=== PATIENT | male | born 1955 | race Caucasian/White ===

== ENCOUNTER 2023-05-03 21:59 | Inpatient (IN) | payer OTHER ==
[~2023-05-03] VITALS: Ht 170.2 cm; Wt 98.4 kg
[2023-05-03 22:00] VITALS: BP 118/68; PULSE 80; RESP 18; TEMP 97.6; O2SAT 97
[2023-05-03 22:31] LABS: BASOPHILS % (AUTO) 0.2 % (0.0-2.0); LYMPHOCYTES # (AUTO) 0.4 K/uL (2.0-11.5); LYMPHOCYTES % (AUTO) 10.9 % (20.5-51.1); MEAN CORPUSCULAR HEMOGLOBIN 31 pg (27-31); MEAN CORPUSCULAR HGB CONC 34 g/dL (33-37); MEAN CORPUSCULAR VOLUME 89.1 fL (80-94); MONOCYTES # (AUTO) 0.2 K/uL (0.8-1.0); MONOCYTES % (AUTO) 5.4 % (1.7-9.3); NEUTROPHILS # (AUTO) 3.1 K/uL (1.8-7.7); NEUTROPHILS % (AUTO) 82.5 % (42.2-75.2); PLATELET COUNT (AUTO) 27 K/uL (140-450); RED BLOOD CELL COUNT(AUTO) 2.27 MIL/uL (4.20-6.10); RED CELL DISTRIBUTION WIDTH 21.2 % (11.6-13.7); WHITE BLOOD COUNT (AUTO) 3.7 K/uL (4.8-10.8)
[2023-05-03 22:34] LABS: HEMATOCRIT 20.2 % (36-52); HEMOGLOBIN 6.9 g/dL (12.0-18.0)
[2023-05-03 22:47] LABS: ANION GAP 13.6 (8-16); CALCIUM 8.2 mg/dL (8.5-10.1); CARBON DIOXIDE 24.5 mmol/L (21-32)
[2023-05-03 22:59] LABS: POTASSIUM 6.1 mmol/L (3.5-5.1)
[2023-05-03 23:01] LABS: CREATININE 6.7 mg/dL (0.6-1.3)
[2023-05-03] MEDS: NACL 0.9% 1,000 ML IV ONE (23:56)
[2023-05-04] MEDS: SODIUM ZIRCONIUM CYCLOSILICATE 10 GM POWD.PACK PO ONE (00:18)
[2023-05-04] MEDS: DEXTROSE 50% 50 ML SYR IVP ONE (00:21)
[2023-05-04] MEDS ORDERED: cefTRIAXone 1,000 MG VIAL ONE (00:48)
[2023-05-04] MEDS ORDERED: TRI48 PO (00:50)
[2023-05-04] MEDS ORDERED: VALP-22 PO (00:50)
[2023-05-04] MEDS ORDERED: NAPR1TAB25 PO (00:50)
[2023-05-04] MEDS ORDERED: BENZ-315 PO (00:50)
[2023-05-04] MEDS ORDERED: SYN.05 PO (00:50)
[2023-05-04] MEDS ORDERED: RISP0.5T3 SL (00:50)
[2023-05-04] MEDS ORDERED: HYDR-5080 PO (00:50)
[2023-05-04] MEDS ORDERED: HYDR25TA32 PO (00:50)
[2023-05-04] MEDS ORDERED: METF-346 PO (00:50)
[2023-05-04] MEDS ORDERED: ZOLP5TAB1 PO (00:50)
[2023-05-04] MEDS: cefTRIAXone 1,000 MG in DEXT 5% MINI-BAG PLUS 50 ML IV ONE (00:59)
[2023-05-04] MEDS: NACL 0.9% 1,000 ML IV SCH ×3 (01:05→16:25)
[2023-05-04 01:19] LABS: LACTIC ACID 1.6 mmol/L (0.4-2.0)
[2023-05-04 05:10] LABS: APPEARANCE,URINE CLEAR (CLEAR); BILIRUBIN,URINE 2+ (NEGATIVE); BLOOD, URINE 3+ (NEGATIVE); COLOR,URINE YELLOW (YELLOW); LEUKOCYTE ESTERASE ,URINE 3+ (NEGATIVE); NITRITE, URINE POSITIVE (NEGATIVE); PH,URINE 6.5 (5.0-9.0); PROTEIN,URINE 2+ (NEGATIVE); UGLUCOSE TRACE (NEGATIVE)
[2023-05-04 05:15] LABS: BACTERIA,URINE >30 (MANY) /HPF (None Seen); ICTOTEST POSITIVE (NEGATIVE); RBC,URINE TOO NUMEROUS TO COUN /HPF (0-5); WBC,URINE >25 (MANY) /HPF (0-5)
[2023-05-04 05:16] LABS: MUCUS,URINE 1+ /LPF (None Seen); SQUAMOUS EPITHELIAL CELL,UR 0-3 (FEW) /LPF (0-3 (FEW))
[2023-05-04 07:36] LABS: ANION GAP 14.1 (8-16); CALCIUM 7.8 mg/dL (8.5-10.1); CARBON DIOXIDE 23.3 mmol/L (21-32); CREATININE 3.2 mg/dL (0.6-1.3); POTASSIUM 5.4 mmol/L (3.5-5.1)
[2023-05-04 07:37] LABS: BASOPHILS % (AUTO) 0.3 % (0.0-2.0); EOSINOPHILS % (AUTO) 1.2 % (0.0-4.0); HEMATOCRIT 26.5 % (36-52); HEMOGLOBIN 8.9 g/dL (12.0-18.0); LYMPHOCYTES # (AUTO) 0.4 K/uL (2.0-11.5); LYMPHOCYTES % (AUTO) 9.9 % (20.5-51.1); MEAN CORPUSCULAR HEMOGLOBIN 30 pg (27-31); MEAN CORPUSCULAR HGB CONC 34 g/dL (33-37); MEAN CORPUSCULAR VOLUME 88.6 fL (80-94); MONOCYTES # (AUTO) 0.2 K/uL (0.8-1.0); MONOCYTES % (AUTO) 5.5 % (1.7-9.3); NEUTROPHILS # (AUTO) 3.3 K/uL (1.8-7.7); NEUTROPHILS % (AUTO) 83.1 % (42.2-75.2); PLATELET COUNT (AUTO) 21 K/uL (140-450); RED BLOOD CELL COUNT(AUTO) 2.99 MIL/uL (4.20-6.10); RED CELL DISTRIBUTION WIDTH 19.6 % (11.6-13.7); WHITE BLOOD COUNT (AUTO) 3.9 K/uL (4.8-10.8)
[2023-05-04] MEDS: metroNIDAZOLE 500 MG/NS PREMIX 100 ML IV SCH (08:34)
[2023-05-04 14:14] VITALS: PULSE 78; RESP 18; O2SAT 97
[2023-05-04] MEDS ORDERED: POTASSIUM CHLORIDE 10 MEQ TABER PO PRN (15:05)
[2023-05-04] MEDS ORDERED: ACETAMINOPHEN 325 MG TAB PO PRN (15:05)
[2023-05-04] MEDS ORDERED: HYDROcodone/APAP 7.5/325 MG 1 TAB PO PRN (15:05)
[2023-05-04] MEDS ORDERED: DEXTROSE 50% 50 ML SYR IVP PRN ×2 (15:05)
[2023-05-04] MEDS ORDERED: ONDANSETRON 4 MG/2 ML VIAL IVP PRN (15:05)
[2023-05-04] MEDS ORDERED: INSULIN LISPRO SLIDING SCALE 100 UNITS/ML VIAL SUBQ PRN (15:05)
[2023-05-04 16:00] VITALS: BP 127/70; PULSE 66; PULSE 74; RESP 19; TEMP 97.4; O2SAT 98
[2023-05-04] MEDS ORDERED: HYDROCOLLOID DRESSING TP PRN (16:15)
[2023-05-04] MEDS ORDERED: NYSTATIN POW 100 MU/GM 15 GM BTL TP PRN (16:15)
[2023-05-04] MEDS ORDERED: THERAHONEY GEL 42.5 GM TP PRN (16:15)
[2023-05-04 16:18] LABS: CHOL/HDL RATIO 5.7 (1-4.5); FREE T4 (FREE THYROXINE) 1.05 ng/dL (0.76-1.46); INR 1.42 (0.8-1.2); MAGNESIUM 1.9 mg/dL (1.8-2.4); PARTIAL THROMBOPLASTIN TIME 40.9 secs (22-35.6); PHOSPHORUS 5.5 mg/dL (2.5-4.9); PROTHROMBIN TIME 14.7 secs (10.8-13.4); THYROID STIMULATING HORMONE 18.53 uIU/mL (0.34-3.74)
[2023-05-04] MEDS: BLOOD GLUCOSE MONITORING 1 DEV DEV FS SCH (16:25)
[2023-05-04] MEDS ORDERED: BLOOD GLUCOSE MONITORING 1 DEV DEV FS SCH (16:30)
[2023-05-04] MEDS: FENOFIBRATE 48 MG TAB PO SCH (16:37)
[2023-05-04 18:14] LABS: AMPHETAMINE, URINE NEGATIVE ng/ml (NEG <=1000); BARBITURATE, URINE NEGATIVE ng/ml (NEG <=200); BENZODIAZEPINE, URINE NEGATIVE ng/mL (NEG <=200); CANNABINOID, URINE NEGATIVE ng/mL (NEG <=50); COCAINE, URINE NEGATIVE ng/mL (NEG <=300); OPIATE, URINE POSITIVE ng/mL (NEG <=2000); PHENCYCLIDINE SCREEN,URINE NEGATIVE ng/mL (NEG <=25)
[2023-05-04] MEDS: SODIUM ZIRCONIUM CYCLOSILICATE 10 GM POWD.PACK PO PRN (18:16)
[2023-05-04 20:00] VITALS: BP 119/58; PULSE 66; RESP 18; TEMP 96; O2SAT 100
[2023-05-04 20:07] VITALS: PULSE 68
[2023-05-04] MEDS ORDERED: metFORMIN 500 MG TAB PO SCH (21:00)
[2023-05-04] MEDS: ZOLPIDEM 5 MG TAB PO SCH (21:32)
[2023-05-04] MEDS: DOCUSATE SODIUM 100 MG GELCAP PO SCH (21:33)
[2023-05-04] MEDS: VALPROIC ACID 250 MG/5 ML UDC PO SCH (21:33)
[2023-05-04] MEDS: risperiDONE 1 MG TAB PO SCH (21:33)
[2023-05-04] MEDS: BENZTROPINE 1 MG TAB PO SCH (23:24)
[2023-05-05] VITALS (10 sets, daily range): BP systolic 105–130; BP diastolic 50–75; PULSE 66–85; RESP 18–21; TEMP 96.5–98.6; O2SAT 96–99
[2023-05-05] MEDS: NYSTATIN POW 100 MU/GM 15 GM BTL TP SCH (00:33)
[2023-05-05] MEDS: LEVOTHYROXINE 0.05 MG TAB PO SCH (05:43)
[2023-05-05 07:16] LABS: ANION GAP 12.9 (8-16); CALCIUM 7.7 mg/dL (8.5-10.1); CREATININE 2.9 mg/dL (0.6-1.3); POTASSIUM 4.9 mmol/L (3.5-5.1)
[2023-05-05 07:24] LABS: MAGNESIUM 1.9 mg/dL (1.8-2.4); PHOSPHORUS 5.1 mg/dL (2.5-4.9)
[2023-05-05 08:37] LABS: HEMATOCRIT 24.2 % (36-52); HEMOGLOBIN 8.3 g/dL (12.0-18.0); MEAN CORPUSCULAR HEMOGLOBIN 30 pg (27-31); MEAN CORPUSCULAR HGB CONC 34 g/dL (33-37); MEAN CORPUSCULAR VOLUME 88.4 fL (80-94); RED BLOOD CELL COUNT(AUTO) 2.73 MIL/uL (4.20-6.10); RED CELL DISTRIBUTION WIDTH 19.5 % (11.6-13.7); WHITE BLOOD COUNT (AUTO) 2.7 K/uL (4.8-10.8)
[2023-05-05 08:50] LABS: LACTIC ACID 0.9 mmol/L (0.4-2.0)
[2023-05-05 08:59] LABS: PLATELET COUNT (AUTO) 9 K/uL (140-450)
[2023-05-05 09:00] LABS: BASOPHILS % (MANUAL) 0 % (0-2); BLASTS, MANUAL % 0 % (0-0); EOSINOPHILS % (MANUAL) 1 % (0-4); LYMPHOCYTES % (MANUAL) 11 % (20-46); METAMYELOCYTES % 0 % (0-0); MONOCYTES % (MANUAL) 2 % (5-12); MYELOCYTES % 0 % (0-0); OTHER CELLS,MANUAL % 0 (0-0); PLASMA CELLS 0; PLATELET ESTIMATE DECREASED; PROMYELOCYTES % 0 % (0-0); SMUDGE CELLS 0
[2023-05-05] MEDS ORDERED: hydroCHLOROthiazide 25 MG TAB PO SCH (09:00)
[2023-05-05 09:02] LABS: ANISOCYTOSIS 1+; OVALOCYTES 1+
[2023-05-05] MEDS: HYDROcodone/APAP 7.5/325 MG 1 TAB PO PRN (09:06)
[2023-05-05] MEDS: PANTOPRAZOLE 40 MG INJ VIAL IVP SCH (09:17)
[2023-05-05] MEDS: THERAHONEY GEL 42.5 GM TP SCH (13:00)
[2023-05-05] MEDS: HYDROCOLLOID DRESSING TP SCH (13:00)
[2023-05-06] VITALS (7 sets, daily range): BP systolic 116–132; BP diastolic 50–65; PULSE 68–78; RESP 16–20; TEMP 96–97.5; O2SAT 96–100
[2023-05-06] MEDS: LEVOTHYROXINE 0.075 MG TAB PO SCH (06:41)
[2023-05-06] MEDS: CALCIUM ACETATE 667 MG TAB PO SCH (09:25)
[2023-05-06 12:55] LABS: BASOPHILS % (AUTO) 0.4 % (0.0-2.0); EOSINOPHILS % (AUTO) 1.5 % (0.0-4.0); HEMATOCRIT 21.9 % (36-52); HEMOGLOBIN 7.3 g/dL (12.0-18.0); LYMPHOCYTES # (AUTO) 0.4 K/uL (2.0-11.5); LYMPHOCYTES % (AUTO) 13.9 % (20.5-51.1); MEAN CORPUSCULAR HEMOGLOBIN 30 pg (27-31); MEAN CORPUSCULAR HGB CONC 34 g/dL (33-37); MEAN CORPUSCULAR VOLUME 88.7 fL (80-94); MONOCYTES # (AUTO) 0.2 K/uL (0.8-1.0); MONOCYTES % (AUTO) 6.1 % (1.7-9.3); NEUTROPHILS # (AUTO) 2.1 K/uL (1.8-7.7); NEUTROPHILS % (AUTO) 78.1 % (42.2-75.2); PLATELET COUNT (AUTO) 26 K/uL (140-450); RED BLOOD CELL COUNT(AUTO) 2.47 MIL/uL (4.20-6.10); RED CELL DISTRIBUTION WIDTH 19.4 % (11.6-13.7); WHITE BLOOD COUNT (AUTO) 2.6 K/uL (4.8-10.8)
[2023-05-06 13:09] LABS: ANION GAP 12.2 (8-16); CALCIUM 7.6 mg/dL (8.5-10.1); CARBON DIOXIDE 23.5 mmol/L (21-32); CREATININE 2.3 mg/dL (0.6-1.3); POTASSIUM 4.7 mmol/L (3.5-5.1)
[2023-05-06 13:13] LABS: MAGNESIUM 1.9 mg/dL (1.8-2.4); PHOSPHORUS 5.1 mg/dL (2.5-4.9)
[2023-05-06] MEDS: MEROPENEM 1,000 MG in NACL 0.9% 50 ML IV SCH (22:01)
[2023-05-07] VITALS (8 sets, daily range): BP systolic 95–126; BP diastolic 56–88; PULSE 67–77; RESP 16–18; TEMP 94.4–97.2; O2SAT 95–100
[2023-05-07 07:20] LABS: MAGNESIUM 1.7 mg/dL (1.8-2.4)
[2023-05-07 07:40] LABS: ANION GAP 13.8 (8-16); CALCIUM 7.6 mg/dL (8.5-10.1); CARBON DIOXIDE 23.6 mmol/L (21-32); POTASSIUM 4.4 mmol/L (3.5-5.1)
[2023-05-07 07:48] LABS: HEMATOCRIT 20.3 % (36-52); MEAN CORPUSCULAR HEMOGLOBIN 30 pg (27-31); MEAN CORPUSCULAR HGB CONC 34 g/dL (33-37); MEAN CORPUSCULAR VOLUME 88.1 fL (80-94); PLATELET COUNT (AUTO) 26 K/uL (140-450); RED CELL DISTRIBUTION WIDTH 19.3 % (11.6-13.7)
[2023-05-07 08:17] LABS: HEMOGLOBIN 6.9 g/dL (12.0-18.0); WHITE BLOOD COUNT (AUTO) 1.4 K/uL (4.8-10.8)
[2023-05-07 09:50] LABS: ANISOCYTOSIS 1+; HYPOCHROMASIA 1+; LYMPHOCYTES % (MANUAL) 11 % (20-46); MONOCYTES % (MANUAL) 3 % (5-12); OVALOCYTES 1+; POIKILOCYTOSIS 1+
[2023-05-07 09:51] LABS: TOXIC GRANULATION 1+
[2023-05-07] MEDS: HYDRAGUARD CREAM TP ONE (10:24)
[2023-05-07] MEDS: MAG SULF 2000 MG/WATER PREMIX 50 ML IV PRN (21:12)
[2023-05-08] VITALS (7 sets, daily range): BP systolic 105–134; BP diastolic 53–80; PULSE 61–83; RESP 15–20; TEMP 94.3–98.1; O2SAT 93–100
[2023-05-08 06:53] LABS: BASOPHILS % (AUTO) 0.6 % (0.0-2.0); EOSINOPHILS % (AUTO) 1.2 % (0.0-4.0); HEMATOCRIT 25.9 % (36-52); HEMOGLOBIN 8.9 g/dL (12.0-18.0); LYMPHOCYTES # (AUTO) 0.3 K/uL (2.0-11.5); LYMPHOCYTES % (AUTO) 7.6 % (20.5-51.1); MEAN CORPUSCULAR HEMOGLOBIN 31 pg (27-31); MEAN CORPUSCULAR HGB CONC 34 g/dL (33-37); MEAN CORPUSCULAR VOLUME 89.2 fL (80-94); MONOCYTES # (AUTO) 0.1 K/uL (0.8-1.0); MONOCYTES % (AUTO) 3.4 % (1.7-9.3); NEUTROPHILS # (AUTO) 3.7 K/uL (1.8-7.7); NEUTROPHILS % (AUTO) 87.2 % (42.2-75.2); PLATELET COUNT (AUTO) 28 K/uL (140-450); RED CELL DISTRIBUTION WIDTH 17.6 % (11.6-13.7); WHITE BLOOD COUNT (AUTO) 4.2 K/uL (4.8-10.8)
[2023-05-08 07:48] LABS: MAGNESIUM 2.3 mg/dL (1.8-2.4); PHOSPHORUS 4.5 mg/dL (2.5-4.9)
[2023-05-08 07:53] LABS: ALBUMIN 1.8 g/dL (3.4-5.0); ANION GAP 11.8 (8-16); CALCIUM 7.8 mg/dL (8.5-10.1); CARBON DIOXIDE 24.6 mmol/L (21-32); CREATININE 1.9 mg/dL (0.6-1.3); POTASSIUM 4.4 mmol/L (3.5-5.1); TOTAL BILIRUBIN 0.6 mg/dL (0.0-1.0); TOTAL PROTEIN, SERUM 5.3 g/dL (6.4-8.2)
[2023-05-08] MEDS: CHLORHEXADINE GLUC 2% CLOTH TP SCH (09:00)
[2023-05-08] MEDS: MUPIROCIN CA NASAL 2% 1GM TUBE NS SCH (09:00)
[2023-05-08] MEDS: INSULIN LISPRO SLIDING SCALE 100 UNITS/ML VIAL SUBQ PRN (17:42)
[2023-05-09] VITALS (7 sets, daily range): BP systolic 121–173; BP diastolic 63–76; PULSE 60–89; RESP 16–18; TEMP 93.8–97.4; O2SAT 96–99
[2023-05-09] MEDS ORDERED: VANCOMYCIN PER PHARMACY MC PRN (01:40)
[2023-05-09] MEDS: VANCOMYCIN 1GM/DEXT 5% PREMIX 200 ML IV ONE (02:16)
[2023-05-09] MEDS: VANCOMYCIN 1,000 MG VIAL ONE (02:17)
[2023-05-09 03:25] LABS: APPEARANCE,URINE CLEAR (CLEAR); BILIRUBIN,URINE NEGATIVE (NEGATIVE); BLOOD, URINE 3+ (NEGATIVE); COLOR,URINE RED (YELLOW); LEUKOCYTE ESTERASE ,URINE 2+ (NEGATIVE); NITRITE, URINE NEGATIVE (NEGATIVE); PROTEIN,URINE 2+ (NEGATIVE); UGLUCOSE NEGATIVE (NEGATIVE); UROBILINOGEN,URINE 0.2 EU/dL (0.2 - 1)
[2023-05-09 03:34] LABS: BACTERIA,URINE FEW /HPF (None Seen); MUCUS,URINE 1+ /LPF (None Seen); RBC,URINE TOO NUMEROUS TO COUN /HPF (0-5); SQUAMOUS EPITHELIAL CELL,UR 0-3 (FEW) /LPF (0-3 (FEW))
[2023-05-09 03:47] LABS: URINE TOTAL PROTEIN 118.7 mg/dL (0-12); URINE TPRO CREAT RATIO 3.4 (0-0.20)
[2023-05-09 07:02] LABS: BASOPHILS % (AUTO) 0.9 % (0.0-2.0); EOSINOPHILS # (AUTO) 0.1 K/uL (0-0.4); HEMATOCRIT 25.1 % (36-52); HEMOGLOBIN 8.5 g/dL (12.0-18.0); LYMPHOCYTES # (AUTO) 0.3 K/uL (2.0-11.5); MEAN CORPUSCULAR HEMOGLOBIN 30 pg (27-31); MEAN CORPUSCULAR HGB CONC 34 g/dL (33-37); MEAN CORPUSCULAR VOLUME 88.8 fL (80-94); MONOCYTES # (AUTO) 0.1 K/uL (0.8-1.0); MONOCYTES % (AUTO) 4.7 % (1.7-9.3); NEUTROPHILS # (AUTO) 2.1 K/uL (1.8-7.7); NEUTROPHILS % (AUTO) 80.4 % (42.2-75.2); PLATELET COUNT (AUTO) 28 K/uL (140-450); RED BLOOD CELL COUNT(AUTO) 2.83 MIL/uL (4.20-6.10); RED CELL DISTRIBUTION WIDTH 17.9 % (11.6-13.7); WHITE BLOOD COUNT (AUTO) 2.6 K/uL (4.8-10.8)
[2023-05-09 07:11] LABS: ALBUMIN 1.7 g/dL (3.4-5.0); ANION GAP 11.3 (8-16); CALCIUM 7.6 mg/dL (8.5-10.1); CARBON DIOXIDE 23.4 mmol/L (21-32); CREATININE 1.7 mg/dL (0.6-1.3); POTASSIUM 4.7 mmol/L (3.5-5.1); TOTAL BILIRUBIN 0.4 mg/dL (0.0-1.0)
[2023-05-09 07:29] LABS: MAGNESIUM 2.2 mg/dL (1.8-2.4); PHOSPHORUS 4.2 mg/dL (2.5-4.9)
[2023-05-09 12:02] LABS: CHLORIDE,URINE RANDOM 90 mmol/L (110-250); CREATININE,URINE RANDOM 34 mg/dL (30-125); URINE SODIUM, RANDOM 73 mmol/l (40-220)
[2023-05-09] MEDS ORDERED: SYN.075 PO (16:07)
[2023-05-09] MEDS ORDERED: VANC1VIA34 MC (16:07)
[2023-05-09] MEDS ORDERED: MERO1PDS7 IV (16:07)
[2023-05-10] VITALS (8 sets, daily range): BP systolic 115–140; BP diastolic 52–70; PULSE 59–76; RESP 18–19; TEMP 96.1–98.1; O2SAT 96–100
[2023-05-10 06:50] LABS: BASOPHILS % (AUTO) 0.7 % (0.0-2.0); EOSINOPHILS # (AUTO) 0.1 K/uL (0-0.4); EOSINOPHILS % (AUTO) 2.3 % (0.0-4.0); HEMATOCRIT 24.1 % (36-52); HEMOGLOBIN 8.2 g/dL (12.0-18.0); LYMPHOCYTES # (AUTO) 0.3 K/uL (2.0-11.5); LYMPHOCYTES % (AUTO) 12.9 % (20.5-51.1); MEAN CORPUSCULAR HEMOGLOBIN 30 pg (27-31); MEAN CORPUSCULAR HGB CONC 34 g/dL (33-37); MEAN CORPUSCULAR VOLUME 89.3 fL (80-94); MONOCYTES # (AUTO) 0.1 K/uL (0.8-1.0); MONOCYTES % (AUTO) 3.3 % (1.7-9.3); NEUTROPHILS % (AUTO) 80.8 % (42.2-75.2); PLATELET COUNT (AUTO) 24 K/uL (140-450); RED CELL DISTRIBUTION WIDTH 18.4 % (11.6-13.7); WHITE BLOOD COUNT (AUTO) 2.5 K/uL (4.8-10.8)
[2023-05-10 07:39] LABS: ANION GAP 11.7 (8-16); CARBON DIOXIDE 24.9 mmol/L (21-32); CREATININE 1.6 mg/dL (0.6-1.3); POTASSIUM 5.6 mmol/L (3.5-5.1)
[2023-05-10 08:07] LABS: MAGNESIUM 2.1 mg/dL (1.8-2.4); PHOSPHORUS 3.9 mg/dL (2.5-4.9)
[2023-05-10] MEDS: VANCOMYCIN 1,000 MG in DEXTROSE 5% 250 ML IV SCH (11:02)
[2023-05-10] MEDS: SODIUM ZIRCONIUM CYCLOSILICATE 10 GM POWD.PACK PO SCH (14:33)
[2023-05-10] MEDS: FUROSEMIDE 40 MG/4 ML VIAL IVP SCH (14:34)
[2023-05-11 04:00] VITALS: BP 132/53; PULSE 69; RESP 20; TEMP 97.8; O2SAT 99
[2023-05-11 06:52] LABS: BASOPHILS % (AUTO) 0.7 % (0.0-2.0); EOSINOPHILS # (AUTO) 0.1 K/uL (0-0.4); EOSINOPHILS % (AUTO) 3.1 % (0.0-4.0); HEMOGLOBIN 8.3 g/dL (12.0-18.0); LYMPHOCYTES # (AUTO) 0.4 K/uL (2.0-11.5); LYMPHOCYTES % (AUTO) 12.8 % (20.5-51.1); MEAN CORPUSCULAR HEMOGLOBIN 31 pg (27-31); MEAN CORPUSCULAR HGB CONC 35 g/dL (33-37); MEAN CORPUSCULAR VOLUME 88.5 fL (80-94); MONOCYTES # (AUTO) 0.1 K/uL (0.8-1.0); MONOCYTES % (AUTO) 3.7 % (1.7-9.3); NEUTROPHILS # (AUTO) 2.6 K/uL (1.8-7.7); NEUTROPHILS % (AUTO) 79.7 % (42.2-75.2); PLATELET COUNT (AUTO) 30 K/uL (140-450); RED BLOOD CELL COUNT(AUTO) 2.72 MIL/uL (4.20-6.10); RED CELL DISTRIBUTION WIDTH 17.8 % (11.6-13.7); WHITE BLOOD COUNT (AUTO) 3.2 K/uL (4.8-10.8)
[2023-05-11 06:55] LABS: ANION GAP 9.4 (8-16); CARBON DIOXIDE 26.9 mmol/L (21-32); CREATININE 1.6 mg/dL (0.6-1.3); POTASSIUM 5.3 mmol/L (3.5-5.1)
[2023-05-11 07:01] LABS: MAGNESIUM 2.1 mg/dL (1.8-2.4); PHOSPHORUS 3.8 mg/dL (2.5-4.9)
[2023-05-11 08:00] VITALS: BP 131/67; PULSE 81; RESP 19; TEMP 96.8; O2SAT 100
[2023-05-11 08:52] VITALS: PULSE 81; RESP 18; O2SAT 100
[2023-05-11 10:38] LABS: TRANSFERRIN 165 mg/dL (200 - 370)
[2023-05-11 10:40] LABS: FERRITIN 810 ng/mL (30 - 400)
[2023-05-11] MEDS: VANCOMYCIN 1,000 MG in DEXTROSE 5% 250 ML IV SCH (11:55)
[2023-05-11] MEDS: SODIUM ZIRCONIUM CYCLOSILICATE 10 GM POWD.PACK PO SCH (13:06)
[2023-05-11 16:00] VITALS: BP 147/85; PULSE 72; RESP 19; TEMP 97; O2SAT 100
[2023-05-11 20:00] VITALS: PULSE 73; RESP 19; O2SAT 97
[2023-05-12 04:00] VITALS: BP 124/64; PULSE 78; RESP 19; TEMP 97.5; O2SAT 98
[2023-05-12 06:57] LABS: EOSINOPHILS # (AUTO) 0.1 K/uL (0-0.4); HEMATOCRIT 23.3 % (36-52); LYMPHOCYTES # (AUTO) 0.4 K/uL (2.0-11.5); MEAN CORPUSCULAR HEMOGLOBIN 31 pg (27-31); MEAN CORPUSCULAR HGB CONC 34 g/dL (33-37); MEAN CORPUSCULAR VOLUME 89.3 fL (80-94); MONOCYTES # (AUTO) 0.1 K/uL (0.8-1.0); NEUTROPHILS # (AUTO) 1.9 K/uL (1.8-7.7); PLATELET COUNT (AUTO) 35 K/uL (140-450); RED BLOOD CELL COUNT(AUTO) 2.61 MIL/uL (4.20-6.10); RED CELL DISTRIBUTION WIDTH 18.6 % (11.6-13.7); WHITE BLOOD COUNT (AUTO) 2.6 K/uL (4.8-10.8)
[2023-05-12 07:10] LABS: ANION GAP 9.7 (8-16); CALCIUM 7.8 mg/dL (8.5-10.1); CARBON DIOXIDE 26.1 mmol/L (21-32); CREATININE 1.8 mg/dL (0.6-1.3); MAGNESIUM 1.8 mg/dL (1.8-2.4); PHOSPHORUS 3.9 mg/dL (2.5-4.9); POTASSIUM 5.8 mmol/L (3.5-5.1)
[2023-05-12 08:00] VITALS: PULSE 83; RESP 18; O2SAT 100
[2023-05-12] MEDS ORDERED: VANCOMYCIN 1GM/DEXT 5% PREMIX 200 ML IV SCH ×2 (11:30)
[2023-05-12] MEDS: VANCOMYCIN 1,000 MG in NACL 0.9% 250 ML IV SCH (11:47)
[2023-05-12] MEDS ORDERED: VANCOMYCIN 1,000 MG in DEXTROSE 5% 250 ML IV SCH (12:00)
== END 2023-05-12 17:05 | DRG 871 ==
LOC: MED 21:59 → MTU 05-04 01:12
PROC: 30233N1 Transfusion of Nonautologous Red Blood Cells into Peripheral Vein, Percutaneous Approach (ICD-10-PCS; 2023-05-04)
PROC: 30233R1 Transfusion of Nonautologous Platelets into Peripheral Vein, Percutaneous Approach (ICD-10-PCS; principal; 2023-05-05)
PROC: 30233R1 Transfusion of Nonautologous Platelets into Peripheral Vein, Percutaneous Approach (ICD-10-PCS; 2023-05-06)
PROC: 30233N1 Transfusion of Nonautologous Red Blood Cells into Peripheral Vein, Percutaneous Approach (ICD-10-PCS; 2023-05-08)
DX: A41.9 Sepsis, unspecified organism (principal); J69.0 Pneumonitis due to inhalation of food and vomit; L89.153 Pressure ulcer of sacral region, stage 3; N17.0 Acute kidney failure with tubular necrosis; I13.0 Hypertensive heart and chronic kidney disease with heart failure and stage 1 through stage 4 chronic kidney disease, or unspecified chronic kidney disease; N39.0 Urinary tract infection, site not specified; N18.4 Chronic kidney disease, stage 4 (severe); D61.818 Other pancytopenia; M48.56XA Collapsed vertebra, not elsewhere classified, lumbar region, initial encounter for fracture; R18.8 Other ascites; F20.9 Schizophrenia, unspecified; Z20.822 Contact with and (suspected) exposure to COVID-19; D64.9 Anemia, unspecified; E03.9 Hypothyroidism, unspecified; I50.9 Heart failure, unspecified; E11.22 Type 2 diabetes mellitus with diabetic chronic kidney disease; E83.39 Other disorders of phosphorus metabolism; K21.9 Gastro-esophageal reflux disease without esophagitis; F39 Unspecified mood [affective] disorder; I25.10 Atherosclerotic heart disease of native coronary artery without angina pectoris; E78.5 Hyperlipidemia, unspecified; E87.5 Hyperkalemia; Z79.899 Other long term (current) drug therapy; E11.51 Type 2 diabetes mellitus with diabetic peripheral angiopathy without gangrene; K80.20 Calculus of gallbladder without cholecystitis without obstruction; L89.620 Pressure ulcer of left heel, unstageable; L89.610 Pressure ulcer of right heel, unstageable
CPT/HCPCS: 36415; 36430; 71045; 73630; 73702; 76770; 80048; 80053; 80202; 80299; 80305; 81001; 82140; 82150; 82272; 82436; 82570; 82607; 82728; 82746; 82948; 83036; 83540; 83605; 83690; 83735; 83880; 84100; 84156; 84300; 84439; 84443; 84484; 85025; 85045; 85610; 85730; 86886; 86900; 86901; 86920; 87040; 87081; 87086; 87186; 87205; 92526; 93005; 93925; 93970; 96361; 96365; 96375; 97112; 97163-GP; 99285; C9113; J0696; J1815; J1940; J2185; J3370; J3475; J3490; J7030; J7060; P9016; P9035; Q0092